=== PATIENT | male | born 1955 | race Caucasian/White ===

== ENCOUNTER 2018-09-16 16:52 | Emergency (ER) | payer MEDICARE, OTHER ==
[2018-09-16] MEDS ORDERED: Sodium Chloride 0.9% 10 ML Syringe FLUSH PRN (17:24)
[2018-09-16] MEDS ORDERED: Famotidine 20 MG/2 ML SDV IVPUSH ONE (17:24)
[2018-09-16] MEDS ORDERED: Sodium Chloride 0.9% 1,000 ML IV ONE (17:24)
--- NOTE | 2018-09-16 17:32 | EDM.PDOC ---
ED HPI GENERAL MEDICAL PROBLEM - General Chief Complaint: General Stated Complaint: THROWING UP GREEN STUFF Time Seen by Provider: 09/16/18 17:11 Source of Information: Reports: Patient History Limitations: Reports: No Limitations - History of Present Illness INITIAL COMMENTS - FREE TEXT/NARRATIVE: Patient is a 62-year-old gentleman who presents to the emergency department this evening with a complaint of abdominal pain. Patient states approximately 3 weeks ago, A few hours after eating a meal at a local restaurant. He became nauseous and vomited several times. Since his vomited just about every day and has lost his appetite. He's only had a few bowel movements and they have been diarrhea. Abdominal pain described as aching and squeezing. Vomitus described as initially bile color and then becoming dark. Denies seeing blood in vomit or stool. Patient denies similar symptoms symptoms, or any abdominal surgeries in the past. Patient denies chest pain, shortness of breath, recent out of country travel, fever, testicular pain, dysuria, or others with similar symptoms. Onset: Gradual Duration: Week(s): Location: Reports: Abdomen Quality: Reports: Ache, Pressure Severity: Moderate Improves with: Reports: None Worsens with: Reports: Eating Associated Symptoms: Reports: Loss of Appetite, Nausea/Vomiting. Denies: Chest Pain, Fever/Chills Abdomen Pain Score (Numeric/FACES): 4 - Related Data Allergies Allergy/AdvReac Type Severity Reaction Status Date / Time No Known Drug Allergies Allergy Cannot Verified 09/16/18 17:09 Remember Home Meds: Home Meds Cholecalciferol (Vitamin D3) [Vitamin D3] 2,000 unit PO DAILY 09/16/18 [History] Dextroamphetamine [Dextrostat] 5 mg PO ASDIRECTED 09/16/18 [History] Ferrous Sulfate 325 mg PO DAILY 09/16/18 [History] Fish Oil/Beverly-3 Fatty Acids [Fish Oil 1,000 MG] 1,000 mg PO BID 09/16/18 [ History] Hydrocodone/Acetaminophen [Hydrocodon-Acetaminophn 10-325] 2 tab PO Q6H PRN 03/27 [History] Insulin Glarg,Human.Rec.Analog [Lantus] 50 unit SUBCUT BEDTIME 09/16/18 [History ] Lisinopril 2.5 mg PO DAILY 09/16/18 [History] NIFEdipine [Nifedipine ER] 30 mg PO DAILY 09/16/18 [History] Potassium Chloride 20 meq PO DAILY 09/16/18 [History] Propranolol HCl [Inderal LA] 160 mg PO DAILY 09/16/18 [History] SUMAtriptan [Imitrex] 25 mg PO DAILY PRN 09/16/18 [History] Simvastatin [Zocor] 40 mg PO BEDTIME 09/16/18 [History] Topiramate [Topiramate ER] 150 mg PO DAILY 09/16/18 [History] Triamterene/Hydrochlorothiazid [Triamterene-HCTZ 37.5-25 MG] 1 tab PO DAILY 03/27 [History] Venlafaxine [Effexor XR] 150 mg PO BEDTIME 09/16/18 [History] metFORMIN [Glucophage] 500 mg PO QID 09/16/18 [History] Social & Family History - Tobacco Use Smoking Status *Q: Never Smoker Second Hand Smoke Exposure: No - Caffeine Use Caffeine Use: Reports: Tea - Recreational Drug Use Recreational Drug Use: No ED ROS GENERAL - Review of Systems Review Of Systems: ROS reveals no pertinent complaints other than HPI. Constitutional: Reports: No Symptoms HEENT: Reports: No Symptoms Respiratory: Reports: No Symptoms Cardiovascular: Reports: No Symptoms Endocrine: Reports: No Symptoms GI/Abdominal: Reports: Abdominal Pain, Diarrhea, Nausea, Vomiting : Reports: No Symptoms Musculoskeletal: Reports: No Symptoms Skin: Reports: No Symptoms Neurological: Reports: No Symptoms Psychiatric: Reports: No Symptoms Hematologic/Lymphatic: Reports: No Symptoms Immunologic: Reports: No Symptoms ED EXAM, GENERAL - Physical Exam Exam: See Below Exam Limited By: No Limitations General Appearance: Alert, WD/WN, No Apparent Distress Throat/Mouth: Normal Inspection, Normal Oropharynx, No Airway Compromise Head: Atraumatic, Normocephalic Neck: Normal Inspection, Supple Respiratory/Chest: No Respiratory Distress, Lungs Clear, Normal Breath Sounds, No Accessory Muscle Use, Chest Non-Tender Cardiovascular: Regular Rate, Rhythm, No Murmur GI/Abdominal: Soft, No Abnormal Bruit, Distended, Tender, Abnormal Bowel Sounds (Hyperactive in all 4 quadrants). No: Guarding, Rigid, Rebound, Hernia, Hepatomegaly, Splenomegaly Back Exam: Normal Inspection. No: CVA Tenderness (L), CVA Tenderness (R) Extremities: Normal Inspection, No Pedal Edema Neurological: Alert, Oriented, Normal Cognition Psychiatric: Normal Affect, Normal Mood Skin Exam: Warm, Dry, Intact, Normal Color, No Rash Lymphatic: No Adenopathy Course - Vital Signs Last Recorded V/S: Last Vital Signs Temp 97.0 F 09/16/18 17:02 Pulse 116 H 09/16/18 17:02 Resp 20 09/16/18 17:02 BP 135/83 09/16/18 17:02 Pulse Ox 99 09/16/18 17:02 - Orders/Labs/Meds Orders: Active Orders 24 hr Category Date Time Status Blood Glucose Check, Bedside [RC] ONETIME Care 09/16/18 17:12 Active Peripheral IV Care [RC] . DIRECTED Care 09/16/18 17:25 Active Sodium Chloride 0.9% [Saline Flush] Med 09/16/18 17:24 Active 10 ml FLUSH Q8HR PRN Peripheral IV Insertion Adult [OM.PC] Routine Oth 09/16/18 17:24 Ordered Medication Orders Sodium Chloride (Saline Flush) 10 ml FLUSH Q8HR PRN PRN Reason: keep vein open Labs: Laboratory Tests 09/16/18 09/16/18 09/16/18 Range/Units 17:08 17:50 17:50 WBC 9.02 (5.00-10.00) 10^3/uL RBC 3.58 L (4.50-6.00) 10^6/uL Hgb 9.8 L (13.0-17.0) g/dL Hct 29.7 L (40.0-52.0) % MCV 83.0 (82.0-92.0) fL MCH 27.4 (27.0-31.0) pg MCHC 33.0 (32.0-36.0) g/dL RDW 14.9 H (11.5-14.5) % Plt Count 380 (150-400) 10^3/uL MPV 9.0 (7.4-10.4) fL Immature Gran % (Auto) 0.3 (0.0-5.0) % Neut % (Auto) 53.2 (50.0-70.0) % Lymph % (Auto) 32.0 (20.0-40.0) % [place] % (Auto) 11.4 H (2.0-8.0) % Eos % (Auto) 2.7 (1.0-3.0) % Baso % (Auto) 0.4 (0.0-1.0) % Immature Gran # (Auto) 0.03 (0.00-0.50) 10^3/uL Neut # (Auto) 4.79 (2.50-7.00) 10^3/uL Lymph # (Auto) 2.89 (1.00-4.00) 10^3/uL [place] # (Auto) 1.03 H (0.10-0.80) 10^3/uL Eos # (Auto) 0.24 (0.10-0.30) 10^3/uL Baso # (Auto) 0.04 (0.00-0.10) 10^3/uL Sodium 142 (136-145) mmol/L Potassium 3.6 (3.3-5.3) mmol/L Chloride 98 (98-115) mmol/L Carbon Dioxide 23.0 (21.0-32.0) mmol/L Anion Gap 24.6 H (5-15) mmol/L BUN 23 (6-25) mg/dL Creatinine 1.08 (0.51-1.17) mg/dL Est Cr Clr Drug Dosing 67.73 mL/min Estimated GFR (MDRD) > 60 mL/min Glucose 137 H (75 - 99) mg/dL POC Glucose 153 H (74-106) mg/dl Calcium 9.2 (8.7-10.3) mg/dL Total Bilirubin 0.4 (0.2-1.0) mg/dL AST 25 (15-37) U/L ALT 21 (12-78) U/L Alkaline Phosphatase 87 (46-116) IU/L Total Protein 7.7 (6.4-8.2) g/dL Albumin 3.28 (3.00-4.80) g/dL Lipase 72 L (73-393) U/L Specimen Type Urine Color (YELLOW) Urine Appearance (CLEAR) Urine pH (5.0-9.0) Ur Specific [place] (1.005-1.030) Urine Protein (NEGATIVE) mg/dL Urine Glucose (UA) (NEGATIVE) mg/dL Urine Ketones (NEGATIVE) mg/dL Urine Occult Blood (NEGATIVE) Urine Nitrite (NEGATIVE) Urine Bilirubin (NEGATIVE) Urine Urobilinogen (0.2-1.0) E.U./dL Ur Leukocyte Esterase (NEGATIVE) Urine RBC (0-5) /HPF Urine WBC (0-5) /HPF Ur Epithelial Cells /LPF Urine Bacteria (NONE TO FEW) /HPF 09/16/18 Range/Units 19:05 WBC (5.00-10.00) 10^3/uL RBC (4.50-6.00) 10^6/uL Hgb (13.0-17.0) g/dL Hct (40.0-52.0) % MCV (82.0-92.0) fL MCH (27.0-31.0) pg MCHC (32.0-36.0) g/dL RDW (11.5-14.5) % Plt Count (150-400) 10^3/uL MPV (7.4-10.4) fL Immature Gran % (Auto) (0.0-5.0) % Neut % (Auto) (50.0-70.0) % Lymph % (Auto) (20.0-40.0) % [place] % (Auto) (2.0-8.0) % Eos % (Auto) (1.0-3.0) % Baso % (Auto) (0.0-1.0) % Immature Gran # (Auto) (0.00-0.50) 10^3/uL Neut # (Auto) (2.50-7.00) 10^3/uL Lymph # (Auto) (1.00-4.00) 10^3/uL [place] # (Auto) (0.10-0.80) 10^3/uL Eos # (Auto) (0.10-0.30) 10^3/uL Baso # (Auto) (0.00-0.10) 10^3/uL Sodium (136-145) mmol/L Potassium (3.3-5.3) mmol/L Chloride (98-115) mmol/L Carbon Dioxide (21.0-32.0) mmol/L Anion Gap (5-15) mmol/L BUN (6-25) mg/dL Creatinine (0.51-1.17) mg/dL Est Cr Clr Drug Dosing mL/min Estimated GFR (MDRD) mL/min Glucose (75 - 99) mg/dL POC Glucose (74-106) mg/dl Calcium (8.7-10.3) mg/dL Total Bilirubin (0.2-1.0) mg/dL AST (15-37) U/L ALT (12-78) U/L Alkaline Phosphatase (46-116) IU/L Total Protein (6.4-8.2) g/dL Albumin (3.00-4.80) g/dL Lipase (73-393) U/L Specimen Type Urinvoid Urine Color Yellow (YELLOW) Urine Appearance Clear (CLEAR) Urine pH 6.0 (5.0-9.0) Ur Specific [place] 1.020 (1.005-1.030) Urine Protein Negative (NEGATIVE) mg/dL Urine Glucose (UA) Negative (NEGATIVE) mg/dL Urine Ketones Negative (NEGATIVE) mg/dL Urine Occult Blood Negative (NEGATIVE) Urine Nitrite Negative (NEGATIVE) Urine Bilirubin Negative (NEGATIVE) Urine Urobilinogen 1.0 (0.2-1.0) E.U./dL Ur Leukocyte Esterase Negative (NEGATIVE) Urine RBC 0-5 (0-5) /HPF Urine WBC 0-5 (0-5) /HPF Ur Epithelial Cells Occasional /LPF Urine Bacteria Rare (NONE TO FEW) /HPF Meds: Medications Generic Name Dose Route Start Last Admin Trade Name Freq PRN Reason Stop Dose Admin Sodium Chloride 10 ml 09/16/18 17:24 Saline Flush FLUSH Q8HR PRN keep vein open Discontinued Medications Generic Name Dose Route Start Last Admin Trade Name Freq PRN Reason Stop Dose Admin Diatrizoate Meglum/Diatrizoate Sod 30 ml 09/16/18 18:59 09/16/18 19:26 Gastrografin 37% PO 09/16/18 19:00 30 ml ONETIME ONE Administration Famotidine 20 mg 09/16/18 17:24 09/16/18 17:57 Pepcid IVPUSH 09/16/18 17:25 20 mg ONETIME ONE Administration Sodium Chloride 1,000 mls @ 999 mls/hr 09/16/18 17:24 09/16/18 17:54 Normal Saline IV 09/16/18 18:24 999 mls/hr .BOLUS ONE Administration Sodium Chloride 50 mls @ 3 mls/sec 09/16/18 18:59 09/16/18 19:26 Normal Saline IV 09/16/18 19:00 3 mls/sec ASDIRECTED ONE Administration Iopamidol 100 ml 09/16/18 18:59 09/16/18 19:25 Isovue-300 (61%) IVPUSH 09/16/18 19:00 100 ml ONETIME ONE Administration Ondansetron HCl 4 mg 09/16/18 18:17 09/16/18 18:24 Zofran IVPUSH 09/16/18 18:18 4 mg ONETIME ONE Administration - Radiology Interpretation Free Text/Narrative:: CT abdomen and pelvis with IV and oral contrast shows bleed small bowel obstruction with dilated loops of bowel, and right lower quadrant mass measuring approximately 7.45.[address] Results Date: 09/16/18 - Re-Assessments/Exams Free Text/Narrative Re-Assessment/Exam: 09/16/18 20:30 Patient afebrile, vital signs stable, no vomiting while in the ER. NG tube not placed because patient is not vomiting at this time and is pain-free. Discussed case with Dr. Dobbins from [facility], and he will accept patient for transfer. Patient will be transferred via ground ACLS. Departure - Departure Time of Disposition: 20:32 Disposition: DC/Tfer to Acute Hospital 02 Condition: Fair Clinical Impression: Small bowel obstruction, Pelvic mass in male - Discharge Information Referrals: Pia Mathews MD [Primary Care Provider] - Forms: ED Department Discharge - My Orders Last 24 Hours: My Active Orders 09/16/18 17:12 Blood Glucose Check, Bedside [RC] ONETIME 09/16/18 17:24 Sodium Chloride 0.9% [Saline Flush] 10 ml FLUSH Q8HR PRN Peripheral IV Insertion Adult [OM.PC] Routine 09/16/18 17:25 Peripheral IV Care [RC] . DIRECTED - Assessment/Plan Last 24 Hours: My Active Orders 09/16/18 17:12 Blood Glucose Check, Bedside [RC] ONETIME 09/16/18 17:24 Sodium Chloride 0.9% [Saline Flush] 10 ml FLUSH Q8HR PRN Peripheral IV Insertion Adult [OM.PC] Routine 09/16/18 17:25 Peripheral IV Care [RC] . DIRECTED Assessment:: Small bowel obstruction Plan: Transfer the [facility]
[2018-09-16] MEDS ORDERED: Ondansetron 4 MG/2 ML SDV IVPUSH ONE (18:17)
[2018-09-16 18:22] LABS: ANION GAP 24.6 mmol/L (5-15); CHLORIDE,CL 98 mmol/L (98-115); SODIUM,NA 142 mmol/L (136-145)
[2018-09-16] MEDS ORDERED: Sodium Chloride 0.9% 50 ML IV ONE (18:59)
[2018-09-16] MEDS ORDERED: Iopamidol 612 MG/ML 100 ML Bottle IVPUSH ONE (18:59)
[2018-09-16] MEDS ORDERED: Diatrizoate Meglumine/Diatrizoate Sodium 37% 30 ML Bottle PO ONE (18:59)
--- NOTE | 2018-09-16 19:52 | CT ---
[id number] CT/CT Abdomen Pelvis W IV EXAM: CT Abdomen Pelvis W IV CLINICAL DATA: ABD PAIN COMPARISON STUDY: None. FINDINGS: Lung bases are clear. Liver, spleen, gallbladder, adrenal glands, and kidneys are unremarkable. Bilateral renal cysts. Fatty atrophy of the pancreas. There is an ill-defined mass measuring 7.4 x 5.0 cm within the right lower is difficult to determine whether is invading the small bowel or arises from it. The mass causes small bowel obstruction as there are multiple dilated loops proximal to the mass and a transition point at the mass itself. The loops measure up to 4.5 cm. There is no free air or pneumatosis. Multiple abnormal right lower quadrant mesenteric lymph nodes. For example there is a lymph node measuring 2.3 cm in short axis and appears to have some internal necrosis. (Series 2 image 87). No free fluid or pneumoperitoneum. Scattered changes of spondylosis the spine. No fracture or osseous lesion. IMPRESSION: 1. Ill-defined right lower quadrant mass measuring approximately 7.4 x 5.0 cm there is difficult to determine whether it is invading the small bowel were arises from its. Either way it is causing a complete small bowel obstruction with dilated loops of bowel proximal to the mass and a transition point at the mass. No pneumatosis, free air or evidence of bowel perforation. Differential considerations include primary small bowel malignancy versus desmoplastic reaction as can be seen with carcinoid. 2. Abnormal right lower quadrant lymph nodes concerning for metastatic disease. Chuck Agustin DO 09/16/181950 Thank you for allowing us to participate in the care of your patient.
== END 2018-09-16 20:50 ==
LOC: KA.ED 16:52
DX: K56.609 Unspecified intestinal obstruction, unspecified as to partial versus complete obstruction (principal); R19.00 Intra-abdominal and pelvic swelling, mass and lump, unspecified site; Z79.899 Other long term (current) drug therapy
CPT/HCPCS: 36415; 74177; 80053; 81001; 82962; 83690; 85025; 96361; 96374; 96375; 99285-25; J2405; J3490; J7030; J7050; Q9963; Q9967